=== PATIENT | male | born 1970 | race Caucasian/White ===

== ENCOUNTER → 2020-04-11 | Outpatient (CLI) | payer OTHER ==
[~2020-04-11] MED LIST: ATOR-2 PO; CETI-158 PO; ELUX100T PO; FENO145T19 PO; METO-282 PO; PANT40TA5 PO; PARO10TA3 PO
== END | disposition home or self-care (01) ==
LOC: CFH 08:41
PROVIDERS: ATTEND Physician Assistant
DX: K21.9 Gastro-esophageal reflux disease without esophagitis (principal)
CPT/HCPCS: 76700

== ENCOUNTER → 2020-06-15 | Outpatient (CLI) | payer OTHER ==
[~2020-06-15] MED LIST changes: -PANT40TA5 PO; +PANT40TA6 PO
== END | disposition home or self-care (01) ==
LOC: RAD 08:26
PROVIDERS: ATTEND Orthopaedic Surgery
DX: S72.052A Unspecified fracture of head of left femur, initial encounter for closed fracture (principal); M25.452 Effusion, left hip; M65.28 Calcific tendinitis, other site; M24.152 Other articular cartilage disorders, left hip; X58.XXXA Exposure to other specified factors, initial encounter; Y93.89 Activity, other specified; Y92.89 Other specified places as the place of occurrence of the external cause; Y99.8 Other external cause status

== ENCOUNTER → 2020-07-06 | Outpatient (CLI) | payer OTHER ==
[~2020-07-06] MED LIST changes: +DICY10CA3 PO; +GABA300C PO; +HYDR1TAB16 PO; +IBUP200C8 PO; +METO25TA35 PO; +MONT10TA11 PO; +OXYC-302 PO; +OXYC5CAP2 PO; +RISA150S INJ
[2020-07-06 09:32] LABS: BASOPHILS % (AUTO) 2 % (0-1); EOSINOPHILS % (AUTO) 3 % (1-7); LYMPHOCYTES % (AUTO) 32 % (22-44); MEAN CORPUSCULAR HEMOGLOBIN 32.1 pg (27.5-34.5); MEAN CORPUSCULAR HGB CONC 33.4 g/dL (33.2-36.2); MONOCYTES % (AUTO) 10 % (2-9); NEUTROPHILS % (AUTO) 54 % (42-75); PLATELET COUNT 307 x10^3/uL (130-400); RED BLOOD COUNT 4.22 x10^6/uL (4.38-5.82); RED CELL DISTRIBUTION WIDTH 15.6 % (9.4-14.8)
[2020-07-06 09:38] LABS: INTERNATIONAL NORMALIZED RATIO 1.03 (0.93-1.1); PROTHROMBIN TIME 10.6 Seconds (9.6-11.5)
[2020-07-06 09:39] LABS: ALANINE AMINOTRANSFERASE 28 U/L (12-78); ALBUMIN 4.1 g/dL (3.4-5.0); ANION GAP 6 mmol/L (5-15); CALCIUM 9.9 mg/dL (8.5-10.1); CHLORIDE 109 mmol/L (98-107); CREATININE 1.09 mg/dL (0.7-1.3)
[2020-07-06 09:42] LABS: ALKALINE PHOSPHATASE 105 U/L (45-117); BILIRUBIN,TOTAL 0.7 mg/dL (0.2-1.0)
[2020-07-06 09:45] LABS: MD NO
== END | disposition home or self-care (01) ==
LOC: STAR 08:24
PROVIDERS: ATTEND Orthopaedic Surgery
DX: Z01.818 Encounter for other preprocedural examination (principal); M16.12 Unilateral primary osteoarthritis, left hip; M87.059 Idiopathic aseptic necrosis of unspecified femur; R94.31 Abnormal electrocardiogram [ECG] [EKG]
CPT/HCPCS: 36415; 80053; 83036; 85025; 85610; 85730; 87081; 93005

== ENCOUNTER → 2020-07-15 | Outpatient (CLI) | payer OTHER | END | disposition home or self-care (01) | LOC: STAR 10:14 | PROVIDERS: ATTEND Anesthesiology | DX: Z01.812 Encounter for preprocedural laboratory examination (principal); Z20.828 Contact with and (suspected) exposure to other viral communicable diseases | CPT/HCPCS: 36415; 87635 ==

== ENCOUNTER 2020-07-20 12:16 | Inpatient (IN) | payer OTHER, MEDICARE ==
[~2020-07-20] VITALS: Ht 180.3 cm; Wt 80.5 kg
[2020-07-20] MEDS: NS + 20MEQ KCL 1,000 ML IV SCH ×2 (08:30→21:00)
[2020-07-20] MEDS: FENOFIBRATE 145 MG TABLET PO SCH (09:00)
[2020-07-20] MEDS: METOPROLOL TARTRATE 25 MG TAB PO SCH (09:00)
[2020-07-20] MEDS: DOCUSATE 100 MG CAPSULE PO SCH (09:00)
[2020-07-20] MEDS: GABAPENTIN 300 MG CAPSULE PO SCH ×2 (09:00→16:00)
[2020-07-20] MEDS: PANTOPRAZOLE 20MG TABLET PO SCH (09:00)
[2020-07-20] MEDS: PAROXETINE 10 MG TABLET PO SCH (09:00)
[~2020-07-20 12:16] MED LIST changes: +ACETAMINOPHEN 650 MG/20.3 ML UDC PO PRN; +BISACODYL 10 MG SUPP PR PRN; +CETIRIZINE 10 MG TABLET PO SCH; +DICYCLOMINE 10 MG CAPSULE PO SCH; +DIPHENHYDRAMINE 25 MG CAPSULE PO PRN; +EPINEPHRINE 1 MG/ML, 1ML ONE; +HYDROcodone/APAP 5/325 TABLET PO PRN; +KETOROLAC 60 MG/2 ML ONE; +MAGNESIUM HYDROXIDE 8%, 30ML UDC PO PRN; +MONTELUKAST 10 MG TABLET PO SCH; +ONDANSETRON 2MG/ML, 2ML IV PRN; +ONDANSETRON ODT 4 MG PO PRN; +OXYcodone IR 5MG TABLET PO PRN; +ROPIvacaine/PF 0.5%, 20 ML ONE; +ROPIvacaine/PF 0.5%, 30 ML ONE; +SENNA/DOCUSATE TABLET PO PRN; +SODIUM CHLORIDE 0.9% 50 ML ONE; +TRANEXAMIC ACID 100 MG/ML, 10ML ONE; +VANCOMYCIN 1,000 MG ONE; +ZOLPIDEM 5MG TABLET PO PRN
[2020-07-20] MEDS ORDERED: GABAPENTIN 300 MG CAPSULE PO ONE (13:00)
[2020-07-20] MEDS ORDERED: CHLORHEXIDINE 15 ML UDC MM ONE (13:00)
[2020-07-20] MEDS ORDERED: LACTATED RINGERS 1,000 ML IV SCH (13:00)
[2020-07-20] MEDS ORDERED: GABAPENTIN 300 MG CAPSULE ONE (13:08)
[2020-07-20] MEDS ORDERED: CHLORHEXIDINE 15 ML UDC ONE (13:08)
[2020-07-20] MEDS ORDERED: ACETAMINOPHEN 500 MG TABLET PO ONE (14:00)
[2020-07-20] MEDS ORDERED: ONDANSETRON 2MG/ML, 2ML IVPush PRN (14:30)
[2020-07-20] MEDS ORDERED: hydrALAzine 20 MG/ML, 1ML IV PRN (14:30)
[2020-07-20] MEDS ORDERED: PROMETHAZINE 25 MG/ML, 1ML IVPush PRN (14:30)
[2020-07-20] MEDS ORDERED: FENTANYL PF 100 MCG/2ML IV PRN (14:30)
[2020-07-20] MEDS ORDERED: HYDROmorphone 1 MG/ML, 1ML INJ IVPush PRN (14:30)
[2020-07-20] MEDS ORDERED: DIPHENHYDRAMINE 50 MG/ML, 1ML IVPush PRN (14:30)
[2020-07-20] MEDS ORDERED: OXYcodone 5 MG/5 ML ORAL.SOL UDC PO PRN (14:30)
[2020-07-20] MEDS ORDERED: MEPERIDINE/PF 25MG/0.5ML IVPush PRN (14:30)
[2020-07-20] MEDS ORDERED: LABETALOL 5MG/ML, 20ML IV PRN (14:30)
[2020-07-20] MEDS ORDERED: DIAZEPAM 5 MG/ML, 2ML IVPush PRN (14:30)
[2020-07-20] MEDS ORDERED: ACETAMINOPHEN 325 MG TABLET PO PRN (14:30)
[2020-07-20] MEDS ORDERED: MIDAZOLAM 1 MG/ML, 2ML ONE (14:32)
[2020-07-20] MEDS ORDERED: FENTANYL PF 250 MCG/5ML ONE (14:32)
[2020-07-20] MEDS ORDERED: LIDOCAINE PF 2%, 5ML ONE (15:09)
[2020-07-20] MEDS ORDERED: ONDANSETRON 2MG/ML, 2ML ONE (15:09)
[2020-07-20] MEDS ORDERED: DEXAMETHASONE 4 MG/ML, 1ML ONE (15:09)
[2020-07-20] MEDS ORDERED: PROPOFOL 10 MG/ML, 20ML ONE (15:09)
[2020-07-20] MEDS ORDERED: CEFAZOLIN 1,000 MG ONE (15:09)
[2020-07-20] MEDS ORDERED: ROCURONIUM 10 MG/ML,10ML ONE (15:09)
[2020-07-20] MEDS ORDERED: SUGAMMADEX 200 MG/2 ML IVPush ONE (15:09)
[2020-07-20] MEDS: ASPIRIN 81 MG TABLET EC PO SCH (18:00)
[2020-07-20 22:45] VITALS: BP 109/72
[2020-07-20] MEDS ORDERED: MONTELUKAST MC SCH (23:00)
[2020-07-20] MEDS ORDERED: FUROSEMIDE 40 MG/4 ML IV ONE (23:00)
[2020-07-20] MEDS ORDERED: CETIRIZINE MC SCH (23:00)
[2020-07-20] MEDS ORDERED: LORazepam 1MG TABLET PO PRN (23:00)
[2020-07-20] MEDS: CETIRIZINE MC SCH (23:01)
[2020-07-20] MEDS: DICYCLOMINE MC SCH (23:01)
[2020-07-20] MEDS: MONTELUKAST MC SCH (23:01)
[2020-07-20] MEDS: CEFAZOLIN PMX 2GM/50ML 50 ML IVPB SCH (23:43)
[2020-07-21] VITALS: BP 128/86
[2020-07-21] MEDS: PANTOPRAZOLE 20MG TABLET PO SCH ×3 (00:14→20:48)
[2020-07-21] MEDS: GABAPENTIN 300 MG CAPSULE PO SCH ×4 (00:14→20:48)
[2020-07-21] MEDS: ATORVASTATIN 80 MG TABLET PO SCH ×2 (00:14→20:48)
[2020-07-21] MEDS: DOCUSATE 100 MG CAPSULE PO SCH ×5 (00:14→20:48)
[2020-07-21] MEDS: MELATONIN 5 MG TABLET PO PRN (01:10)
[2020-07-21 03:04] VITALS: BP 117/75
[2020-07-21 05:07] VITALS: BP 113/83
[2020-07-21] MEDS: ASPIRIN 81 MG TABLET EC PO SCH ×3 (05:36→18:21)
[2020-07-21] MEDS ORDERED: DEXAMETHASONE 4 MG/ML, 1ML IVPush SCH (06:00)
[2020-07-21] MEDS: CEFAZOLIN PMX 2GM/50ML 50 ML IVPB SCH (06:38)
[2020-07-21] MEDS: CETIRIZINE MC SCH ×3 (07:01→22:40)
[2020-07-21] MEDS: DICYCLOMINE MC SCH ×3 (07:01→22:40)
[2020-07-21] MEDS: MONTELUKAST MC SCH ×3 (07:01→22:40)
[2020-07-21 07:46] VITALS: BP 108/75
[2020-07-21 08:07] LABS: BASOPHILS % (AUTO) 1 % (0-1); EOSINOPHILS % (AUTO) 1 % (1-7); LYMPHOCYTES % (AUTO) 29 % (22-44); MEAN CORPUSCULAR HEMOGLOBIN 31.6 pg (27.5-34.5); MEAN CORPUSCULAR HGB CONC 32.6 g/dL (33.2-36.2); MEAN PLATELET VOLUME 8.3 fL (7.4-10.4); MONOCYTES % (AUTO) 6 % (2-9); NEUTROPHILS % (AUTO) 63 % (42-75); PLATELET COUNT 152 x10^3/uL (130-400); RED BLOOD COUNT 3.29 x10^6/uL (4.38-5.82); RED CELL DISTRIBUTION WIDTH 15.7 % (9.4-14.8)
[2020-07-21 08:18] LABS: ALBUMIN 2.8 g/dL (3.4-5.0); ANION GAP 8 mmol/L (5-15); CALCIUM 8.1 mg/dL (8.5-10.1); CHLORIDE 105 mmol/L (98-107)
[2020-07-21 08:29] LABS: MD SCAN
[2020-07-21 08:45] LABS: ALANINE AMINOTRANSFERASE 786 U/L (12-78); ALKALINE PHOSPHATASE 127 U/L (45-117); BILIRUBIN,TOTAL 1.6 mg/dL (0.2-1.0); TOTAL PROTEIN 7.2 g/dL (6.4-8.2)
[2020-07-21] MEDS: FENOFIBRATE 145 MG TABLET PO SCH (08:52)
[2020-07-21] MEDS: PAROXETINE 10 MG TABLET PO SCH (08:52)
[2020-07-21] MEDS: METOPROLOL TARTRATE 25 MG TAB PO SCH (08:52)
[2020-07-21] MEDS ORDERED: OMNIPAQUE 350 MG/ML, 75ML BOTTLE ONE (10:01)
[2020-07-21 14:47] VITALS: BP 112/77
[2020-07-21] MEDS ORDERED: ERGOCALCIFEROL 50,000 UNIT CAPSULE PO SCH (15:00)
[2020-07-21] MEDS: DOXYCYCLINE 100 MG in DEXTROSE 5% 250 ML IV SCH (16:30)
[2020-07-21] MEDS: CEFTRIAXONE PMX 2GM/50ML 50 ML IVPB SCH (16:30)
[2020-07-21] MEDS: METRONIDAZOLE PMX 500MG/100ML 100 ML IV SCH (18:21)
[2020-07-21 21:27] VITALS: BP 125/80
[2020-07-22 02:34] VITALS: BP 118/82
[2020-07-22] MEDS: METRONIDAZOLE PMX 500MG/100ML 100 ML IV SCH ×2 (02:43→10:16)
[2020-07-22] MEDS: DOXYCYCLINE 100 MG in DEXTROSE 5% 250 ML IV SCH ×2 (04:58→17:09)
[2020-07-22] MEDS: ASPIRIN 81 MG TABLET EC PO SCH ×2 (04:58→17:09)
[2020-07-22 05:42] LABS: MEAN CORPUSCULAR HGB CONC 33.2 g/dL (33.2-36.2); MEAN PLATELET VOLUME 8.7 fL (7.4-10.4); PLATELET COUNT 136 x10^3/uL (130-400); RED BLOOD COUNT 2.83 x10^6/uL (4.38-5.82); RED CELL DISTRIBUTION WIDTH 15.4 % (9.4-14.8)
[2020-07-22 05:49] LABS: ALANINE AMINOTRANSFERASE 439 U/L (12-78); ALBUMIN 2.7 g/dL (3.4-5.0); ANION GAP 9 mmol/L (5-15); CHLORIDE 106 mmol/L (98-107)
[2020-07-22 05:59] LABS: ALKALINE PHOSPHATASE 175 U/L (45-117); BILIRUBIN,TOTAL 1.5 mg/dL (0.2-1.0); CREATININE 1.23 mg/dL (0.7-1.3); TOTAL PROTEIN 6.9 g/dL (6.4-8.2)
[2020-07-22 06:17] LABS: MD YES
[2020-07-22 06:22] LABS: EOS#(MANUAL) 0.03 x10^3/uL (0.0-0.4); EOS% (MANUAL) 2 % (1-7); LYMPH#(MANUAL) 0.46 x10^3/uL (1-3.4); LYMPHS% (MANUAL) 35 % (22-44); MONOS#(MANUAL) 0.22 x10^3/uL (0.3-2.7); MONOS% (MANUAL) 17 % (2-9); SEGS% (MANUAL) 46 % (42-75)
[2020-07-22 06:23] LABS: ANISOCYTOSIS 1+
[2020-07-22 06:24] LABS: <PLATELET ESTIMATE> ADEQUATE; <PLT MORPHOLOGY> NORMAL PLT MORPH
[2020-07-22] MEDS: MONTELUKAST MC SCH ×3 (07:01→20:18)
[2020-07-22] MEDS: DICYCLOMINE MC SCH ×3 (07:01→20:18)
[2020-07-22] MEDS: CETIRIZINE MC SCH ×3 (07:01→20:18)
[2020-07-22 07:44] VITALS: BP 146/83
[2020-07-22] MEDS: PANTOPRAZOLE 20MG TABLET PO SCH ×2 (07:47→20:24)
[2020-07-22] MEDS: FENOFIBRATE 145 MG TABLET PO SCH (07:47)
[2020-07-22] MEDS: GABAPENTIN 300 MG CAPSULE PO SCH ×3 (07:47→20:24)
[2020-07-22] MEDS: PAROXETINE 10 MG TABLET PO SCH (07:47)
[2020-07-22] MEDS: METOPROLOL TARTRATE 25 MG TAB PO SCH (07:47)
[2020-07-22] MEDS: DOCUSATE 100 MG CAPSULE PO SCH ×2 (07:48→20:19)
[2020-07-22] MEDS: MULTIVITAMIN 1 TABLET PO SCH (12:53)
[2020-07-22] MEDS: LACTULOSE 20 GM/30 ML UDC PO SCH ×3 (12:53→20:23)
[2020-07-22 14:09] VITALS: BP 145/84
[2020-07-22] MEDS: CEFTRIAXONE PMX 2GM/50ML 50 ML IVPB SCH (15:34)
[2020-07-22 19:36] VITALS: BP 138/81
[2020-07-22] MEDS: MELATONIN 5 MG TABLET PO PRN (20:24)
[2020-07-22] MEDS: ATORVASTATIN 80 MG TABLET PO SCH (20:24)
[2020-07-23 00:23] VITALS: BP 136/79
[2020-07-23] MEDS: DOXYCYCLINE 100 MG in DEXTROSE 5% 250 ML IV SCH ×2 (04:57→17:13)
[2020-07-23] MEDS: ASPIRIN 81 MG TABLET EC PO SCH ×2 (04:57→18:48)
[2020-07-23 05:55] LABS: MEAN CORPUSCULAR HEMOGLOBIN 31.8 pg (27.5-34.5); MEAN CORPUSCULAR HGB CONC 33.9 g/dL (33.2-36.2); MEAN PLATELET VOLUME 8.7 fL (7.4-10.4); PLATELET COUNT 149 x10^3/uL (130-400); RED BLOOD COUNT 3.01 x10^6/uL (4.38-5.82); RED CELL DISTRIBUTION WIDTH 15.5 % (9.4-14.8)
[2020-07-23 05:58] LABS: ALANINE AMINOTRANSFERASE 345 U/L (12-78); ALBUMIN 2.7 g/dL (3.4-5.0); ANION GAP 5 mmol/L (5-15); CALCIUM 8.8 mg/dL (8.5-10.1); CHLORIDE 110 mmol/L (98-107)
[2020-07-23 06:08] LABS: ALKALINE PHOSPHATASE 273 U/L (45-117); BILIRUBIN,TOTAL 1.1 mg/dL (0.2-1.0); TOTAL PROTEIN 6.8 g/dL (6.4-8.2)
[2020-07-23 06:48] LABS: MD YES
[2020-07-23 06:52] LABS: LYMPH#(MANUAL) 0.74 x10^3/uL (1-3.4); LYMPHS% (MANUAL) 37 % (22-44); MONOS% (MANUAL) 15 % (2-9); SEG#(MANUAL) 0.96 x10^3/uL (1.8-6.8); SEGS% (MANUAL) 48 % (42-75)
[2020-07-23 06:53] LABS: ANISOCYTOSIS 1+; POLYCHROMASIA 1+; TARGET CELLS 1+; TEAR DROPS 1+
[2020-07-23 06:54] LABS: <PLATELET ESTIMATE> DECREASED; <PLT MORPHOLOGY> NORMAL PLT MORPH
[2020-07-23] MEDS: MONTELUKAST MC SCH ×3 (07:01→22:49)
[2020-07-23] MEDS: DICYCLOMINE MC SCH ×3 (07:01→22:49)
[2020-07-23] MEDS: CETIRIZINE MC SCH ×3 (07:01→22:49)
[2020-07-23 08:06] LABS: INTERNATIONAL NORMALIZED RATIO 5.49 (0.93-1.1); PROTHROMBIN TIME 57.2 Seconds (9.6-11.5)
[2020-07-23] MEDS: DOCUSATE 100 MG CAPSULE PO SCH ×2 (09:00→19:38)
[2020-07-23] MEDS: PAROXETINE 10 MG TABLET PO SCH (09:45)
[2020-07-23] MEDS: GABAPENTIN 300 MG CAPSULE PO SCH ×3 (09:45→21:28)
[2020-07-23] MEDS: FENOFIBRATE 145 MG TABLET PO SCH (09:45)
[2020-07-23] MEDS: METOPROLOL TARTRATE 25 MG TAB PO SCH (09:45)
[2020-07-23] MEDS: PANTOPRAZOLE 20MG TABLET PO SCH ×2 (09:45→21:28)
[2020-07-23] MEDS: TAMSULOSIN 0.4 MG CAP.ER.24H PO SCH (09:45)
[2020-07-23] MEDS: MULTIVITAMIN 1 TABLET PO SCH (09:45)
[2020-07-23 10:39] VITALS: BP 151/87
[2020-07-23] MEDS: GUAIFENESIN 200 MG TABLET PO SCH ×3 (11:35→21:28)
[2020-07-23 13:30] VITALS: BP 128/78
[2020-07-23 14:00] VITALS: BP 145/76
[2020-07-23] MEDS: CEFTRIAXONE PMX 2GM/50ML 50 ML IVPB SCH (14:48)
[2020-07-23 20:36] VITALS: BP 126/80
[2020-07-23] MEDS: ATORVASTATIN 80 MG TABLET PO SCH (21:28)
[2020-07-23] MEDS: MELATONIN 5 MG TABLET PO PRN (21:28)
[2020-07-24 01:00] VITALS: BP 136/80
[2020-07-24] MEDS: ASPIRIN 81 MG TABLET EC PO SCH ×2 (05:02→18:01)
[2020-07-24] MEDS: GUAIFENESIN 200 MG TABLET PO SCH ×4 (05:02→22:19)
[2020-07-24] MEDS: DOXYCYCLINE 100 MG in DEXTROSE 5% 250 ML IV SCH ×2 (05:02→18:00)
[2020-07-24 06:28] LABS: MEAN CORPUSCULAR HEMOGLOBIN 31.2 pg (27.5-34.5); MEAN CORPUSCULAR HGB CONC 33.2 g/dL (33.2-36.2); MEAN PLATELET VOLUME 9.9 fL (7.4-10.4); PLATELET COUNT 179 x10^3/uL (130-400); RED BLOOD COUNT 3.24 x10^6/uL (4.38-5.82); RED CELL DISTRIBUTION WIDTH 15.8 % (9.4-14.8)
[2020-07-24 06:40] LABS: ALANINE AMINOTRANSFERASE 311 U/L (12-78); ALBUMIN 2.8 g/dL (3.4-5.0); ANION GAP 5 mmol/L (5-15); CALCIUM 8.6 mg/dL (8.5-10.1); CHLORIDE 110 mmol/L (98-107); CREATININE 0.79 mg/dL (0.7-1.3)
[2020-07-24 06:42] LABS: ALKALINE PHOSPHATASE 261 U/L (45-117); BILIRUBIN,TOTAL 1.5 mg/dL (0.2-1.0); TOTAL PROTEIN 7.1 g/dL (6.4-8.2)
[2020-07-24 07:03] LABS: MD YES
[2020-07-24 07:05] LABS: LYMPH#(MANUAL) 1.39 x10^3/uL (1-3.4); LYMPHS% (MANUAL) 33 % (22-44); MONOS#(MANUAL) 0.38 x10^3/uL (0.3-2.7); MONOS% (MANUAL) 9 % (2-9); SEG#(MANUAL) 2.44 x10^3/uL (1.8-6.8); SEGS% (MANUAL) 58 % (42-75)
[2020-07-24 07:06] LABS: <PLATELET ESTIMATE> ADEQUATE; <PLT MORPHOLOGY> NORMAL PLT MORPH
[2020-07-24 07:25] LABS: ANISOCYTOSIS 1+
[2020-07-24 07:26] LABS: POLYCHROMASIA 1+; TARGET CELLS 1+; TEAR DROPS 1+
[2020-07-24 08:55] VITALS: BP 128/73
[2020-07-24] MEDS: DOCUSATE 100 MG CAPSULE PO SCH ×2 (09:00→21:00)
[2020-07-24] MEDS: FENOFIBRATE 145 MG TABLET PO SCH (10:23)
[2020-07-24] MEDS: CETIRIZINE 10 MG TABLET PO SCH ×2 (10:23→10:33)
[2020-07-24] MEDS: TAMSULOSIN 0.4 MG CAP.ER.24H PO SCH (10:24)
[2020-07-24] MEDS: MULTIVITAMIN 1 TABLET PO SCH (10:24)
[2020-07-24] MEDS: PAROXETINE 10 MG TABLET PO SCH (10:24)
[2020-07-24] MEDS: PANTOPRAZOLE 20MG TABLET PO SCH ×2 (10:24→22:18)
[2020-07-24] MEDS: MONTELUKAST 10 MG TABLET PO SCH (10:24)
[2020-07-24] MEDS: METOPROLOL TARTRATE 25 MG TAB PO SCH (10:24)
[2020-07-24] MEDS: GABAPENTIN 300 MG CAPSULE PO SCH ×3 (10:24→22:18)
[2020-07-24 13:09] LABS: INTERNATIONAL NORMALIZED RATIO 1.76 (0.93-1.1); PROTHROMBIN TIME 18.5 Seconds (9.6-11.5)
[2020-07-24] MEDS: CEFTRIAXONE PMX 2GM/50ML 50 ML IVPB SCH (15:08)
[2020-07-24 20:00] VITALS: BP 106/68
[2020-07-24] MEDS: ATORVASTATIN 80 MG TABLET PO SCH (22:17)
[2020-07-24] MEDS: MELATONIN 5 MG TABLET PO PRN (22:18)
[2020-07-25 00:41] VITALS: BP 133/83
[2020-07-25] MEDS: DOXYCYCLINE 100 MG in DEXTROSE 5% 250 ML IV SCH (05:18)
[2020-07-25] MEDS: GUAIFENESIN 200 MG TABLET PO SCH ×2 (05:19→11:00)
[2020-07-25] MEDS: ASPIRIN 81 MG TABLET EC PO SCH (05:19)
[2020-07-25 05:43] LABS: MEAN CORPUSCULAR HEMOGLOBIN 31.8 pg (27.5-34.5); MEAN CORPUSCULAR HGB CONC 33.9 g/dL (33.2-36.2); MEAN PLATELET VOLUME 9.5 fL (7.4-10.4); PLATELET COUNT 198 x10^3/uL (130-400); RED BLOOD COUNT 3.19 x10^6/uL (4.38-5.82); RED CELL DISTRIBUTION WIDTH 15.8 % (9.4-14.8)
[2020-07-25 05:56] LABS: ANION GAP 7 mmol/L (5-15); CALCIUM 9.1 mg/dL (8.5-10.1); CHLORIDE 109 mmol/L (98-107)
[2020-07-25 06:03] LABS: ALANINE AMINOTRANSFERASE 266 U/L (12-78); ALBUMIN 2.8 g/dL (3.4-5.0); ALKALINE PHOSPHATASE 229 U/L (45-117); BILIRUBIN,TOTAL 1.4 mg/dL (0.2-1.0); CREATININE 0.84 mg/dL (0.7-1.3); TOTAL PROTEIN 7.2 g/dL (6.4-8.2)
[2020-07-25 06:29] LABS: MD YES
[2020-07-25 06:31] LABS: LYMPH#(MANUAL) 1.79 x10^3/uL (1-3.4); LYMPHS% (MANUAL) 23 % (22-44); MONOS#(MANUAL) 1.25 x10^3/uL (0.3-2.7); MONOS% (MANUAL) 16 % (2-9); SEG#(MANUAL) 4.76 x10^3/uL (1.8-6.8); SEGS% (MANUAL) 61 % (42-75)
[2020-07-25 06:32] LABS: <PLATELET ESTIMATE> ADEQUATE; <PLT MORPHOLOGY> NORMAL PLT MORPH; ANISOCYTOSIS 1+; POLYCHROMASIA 1+; TARGET CELLS 1+
[2020-07-25 06:53] LABS: INTERNATIONAL NORMALIZED RATIO 1.31 (0.93-1.1); PROTHROMBIN TIME 13.9 Seconds (9.6-11.5)
[2020-07-25 07:36] VITALS: BP 119/82
[2020-07-25] MEDS ORDERED: ASPI81TA45 PO (07:45)
[2020-07-25] MEDS ORDERED: CEFD300C37 PO (07:45)
[2020-07-25] MEDS ORDERED: PHYT5TAB2 PO (07:45)
[2020-07-25] MEDS ORDERED: DOXY100T PO (07:45)
[2020-07-25] MEDS: PAROXETINE 10 MG TABLET PO SCH (08:19)
[2020-07-25] MEDS: TAMSULOSIN 0.4 MG CAP.ER.24H PO SCH (08:20)
[2020-07-25] MEDS: MULTIVITAMIN 1 TABLET PO SCH (08:21)
[2020-07-25] MEDS: FENOFIBRATE 145 MG TABLET PO SCH (08:22)
[2020-07-25] MEDS: PANTOPRAZOLE 20MG TABLET PO SCH (08:22)
[2020-07-25] MEDS: GABAPENTIN 300 MG CAPSULE PO SCH (08:22)
[2020-07-25] MEDS: CETIRIZINE 10 MG TABLET PO SCH (08:23)
[2020-07-25] MEDS: METOPROLOL TARTRATE 25 MG TAB PO SCH (08:23)
[2020-07-25] MEDS: DOCUSATE 100 MG CAPSULE PO SCH (08:23)
[2020-07-25] MEDS: MONTELUKAST 10 MG TABLET PO SCH (08:24)
[2020-07-25] MEDS ORDERED: PHYTONADIONE 5 MG TABLET PO SCH (13:30)
[2020-07-25 14:28] VITALS: BP 108/74
== END 2020-07-25 14:50 | disposition home health service (06) | DRG 469 ==
LOC: OUT 12:16 → OBSVTOIN 22:48 → ORIP 22:48 → INTOOBSV 22:48 → 4EST 22:49 → 4WST 07-24 14:46 → DCLOUNGE 07-25 14:40
PROVIDERS: ADMIT Orthopaedic Surgery; ATTEND Family Medicine
PROC: 0SRB0JA Replacement of Left Hip Joint with Synthetic Substitute, Uncemented, Open Approach (ICD-10-PCS; principal; 2020-07-20 15:30)
DX: M87.852 Other osteonecrosis, left femur (principal); J15.9 Unspecified bacterial pneumonia; J96.01 Acute respiratory failure with hypoxia; N17.0 Acute kidney failure with tubular necrosis; D68.9 Coagulation defect, unspecified; J44.0 Chronic obstructive pulmonary disease with (acute) lower respiratory infection; D64.9 Anemia, unspecified; E78.5 Hyperlipidemia, unspecified; D70.9 Neutropenia, unspecified; F10.10 Alcohol abuse, uncomplicated; G89.29 Other chronic pain; I10 Essential (primary) hypertension; K21.9 Gastro-esophageal reflux disease without esophagitis; K58.9 Irritable bowel syndrome, unspecified; K72.10 Chronic hepatic failure without coma; M54.12 Radiculopathy, cervical region; F41.9 Anxiety disorder, unspecified; R33.9 Retention of urine, unspecified; Z20.828 Contact with and (suspected) exposure to other viral communicable diseases; Z87.891 Personal history of nicotine dependence; Z88.0 Allergy status to penicillin; Z99.81 Dependence on supplemental oxygen; Z91.030 Bee allergy status
CPT/HCPCS: 36415; 71045; 71275; 76000; 76700; 80053; 80074; 82140; 82306; 82607; 83615; 83735; 83880; 84100; 84145; 84443; 85014; 85018; 85025; 85610; 86140; 87635; 88304; 88311; 93306; 93976; C1713; G0378; J0171; J0690; J0696; J1100; J1885; J1940; J2250; J2405; J2704; J2795; J3010; J3370; J7060; Q9967; C1776; J7120

== ENCOUNTER 2021-03-31 08:25 | Outpatient (CLI) | payer MEDICARE, OTHER ==
[~2021-03-31 08:25] MED LIST changes: -ACETAMINOPHEN 650 MG/20.3 ML UDC PO PRN; +ASPI81TA45 PO; -BISACODYL 10 MG SUPP PR PRN; +CEFD300C37 PO; -CETIRIZINE 10 MG TABLET PO SCH; -DICYCLOMINE 10 MG CAPSULE PO SCH; -DIPHENHYDRAMINE 25 MG CAPSULE PO PRN; +DOXY100T PO; -EPINEPHRINE 1 MG/ML, 1ML ONE; -HYDROcodone/APAP 5/325 TABLET PO PRN; -KETOROLAC 60 MG/2 ML ONE; -MAGNESIUM HYDROXIDE 8%, 30ML UDC PO PRN; -MONT10TA11 PO; +MONT10TA17 PO; -MONTELUKAST 10 MG TABLET PO SCH; -ONDANSETRON 2MG/ML, 2ML IV PRN; -ONDANSETRON ODT 4 MG PO PRN; -OXYC-302 PO; +OXYC1TAB14 PO; -OXYcodone IR 5MG TABLET PO PRN; +PHYT5TAB2 PO; -ROPIvacaine/PF 0.5%, 20 ML ONE; -ROPIvacaine/PF 0.5%, 30 ML ONE; -SENNA/DOCUSATE TABLET PO PRN; -SODIUM CHLORIDE 0.9% 50 ML ONE; -TRANEXAMIC ACID 100 MG/ML, 10ML ONE; -VANCOMYCIN 1,000 MG ONE; -ZOLPIDEM 5MG TABLET PO PRN
== END 2021-03-31 23:59 | disposition home or self-care (01) ==
LOC: RAD 08:25
PROVIDERS: ATTEND Internal Medicine
DX: K76.0 Fatty (change of) liver, not elsewhere classified (principal)
CPT/HCPCS: 76700